=== PATIENT | female | born 1955 | race Asian ===

== ENCOUNTER → 2018-01-07 | Day surgery (SDC) | payer OTHER ==
[~2018-01-07] VITALS: Ht 152.4 cm; Wt 52.6 kg
[2018-01-07 06:38] VITALS: BP 172/81
[2018-01-07 09:54] VITALS: BP 150/77
[2018-01-07 13:23] VITALS: BP 142/86
== END | disposition home or self-care (01) ==
LOC: GI 06:12
PROVIDERS: Internal Medicine Gastroenterology
PROC: 0FPB8DZ Removal of Intraluminal Device from Hepatobiliary Duct, Via Natural or Artificial Opening Endoscopic (ICD-10-PCS; principal; 2018-01-07 07:30)
PROC: 0F798ZZ Dilation of Common Bile Duct, Via Natural or Artificial Opening Endoscopic (ICD-10-PCS; 2018-01-07 07:30)
DX: Z46.6 Encounter for fitting and adjustment of urinary device (principal); K83.1 Obstruction of bile duct; I10 Essential (primary) hypertension; E11.9 Type 2 diabetes mellitus without complications; Z68.21 Body mass index [BMI] 21.0-21.9, adult
CPT/HCPCS: 43260; 82962; C1769; J1610; J2250; J2704; J3010; J7030; Q9967